=== PATIENT | female | born 1975 | race Caucasian/White ===

== ENCOUNTER 2017-07-18 07:17 | Emergency (ER) | payer SELFPAY ==
[~2017-07-18] VITALS: Ht 157.5 cm; Wt 102.0 kg
[~2017-07-18 07:17] MED LIST: TRAM50TA PO; ZOFR4TAB PO
[2017-07-18 07:22] VITALS: BP 161/90; PULSE 59; RESP 16; TEMP 98.1; O2SAT 100
--- NOTE | 2017-07-18 07:33 | PD ---
HPI Chief Complaint: Abdominal Pain Time Seen by Provider: 07:32 Travel History International Travel<30 days: No Contact w/Intl Traveler<30days: No Traveled to known affect area: No History of Present Illness HPI 41-year-old female came to the emergency room with history of lower abdominal pain since this morning. Patient has been sobbing and crying tearfully and says that "my tummy hurts". She says her menstrual cycle started yesterday and she usually gets pelvic cramps with it but this time is worse. Vital signs are stable otherwise. No history of nausea vomiting. No aggravating or relieving factors identified. The pain waxes and wanes on its own. No radiation of the pain. PFSH Past Medical History Narrative Medical List of her past medical, surgical, social and family history is reviewed from the nursing note Diminished Hearing: No Headaches: Yes Myocardial Infarction: Yes Tubal Ligation: Yes Past Surgical History Appendectomy: Yes Section: Yes (x1) Cholecystectomy: Yes Gynecologic Surgery: Yes (TUBAL LIGATION , X 1 ) Social History Alcohol Use: No Tobacco Use: No Substance Use: No Allergies-Medications (Allergen,Severity, Reaction): Coded Allergies: No Known Allergies (Verified , 07/18/17) Comments No known drug allergies. Reported Meds & Prescriptions Reported Meds & Active Scripts Active Ibuprofen 600 Mg Tab 600 Mg PO Q6H PRN Narrative Medication List of her home medications reviewed from the nursing note. Review of Systems Except as stated in HPI: all other systems reviewed are Neg Genitourinary: Positive: Pelvic Pain Physical Exam Narrative GENERAL: Awake, alert, moderate to significant distress, tearful SKIN: Focused skin assessment warm/dry. HEAD: Atraumatic. Normocephalic. EYES: Pupils equal and round. No scleral icterus. No injection or drainage. ENT: No nasal bleeding or discharge. Mucous membranes pink and moist. NECK: Trachea midline. No JVD. CARDIOVASCULAR: Regular rate and rhythm. No murmur appreciated. RESPIRATORY: No accessory muscle use. Clear to auscultation. Breath sounds equal bilaterally. GASTROINTESTINAL: Abdomen soft, non-tender, nondistended. Hepatic and splenic margins not palpable. MUSCULOSKELETAL: No obvious deformities. No clubbing. No cyanosis. No edema. NEUROLOGICAL: Awake and alert. No obvious cranial nerve deficits. Motor grossly within normal limits. Normal speech. PSYCHIATRIC: Pain out of proportion, patient is extremely tearful; insight and judgment normal. Data Data Last Documented VS Vital Signs Date Time Temp Pulse Resp B/P (MAP) Pulse Ox O2 Delivery O2 Flow Rate FiO2 07/18/17 10:33 07/18/17 09:30 53 16 99 Room Air 07/18/17 07:43 98.1 Orders Orders Urinalysis - C+S If Indicated (07/18/17 07:20) Ed Urine Pregnancytest Poc (07/18/17 07:20) Complete Blood Count With Diff (07/18/17 07:42) Comprehensive Metabolic Panel (07/18/17 07:42) Lipase (07/18/17 07:42) Ketorolac Inj (Toradol Inj) (07/18/17 08:00) Ondansetron Inj (Zofran Inj) (07/18/17 08:00) Metoclopramide Inj (Reglan Inj) (07/18/17 08:00) Sodium Chlor 0.9% 1000 Ml Inj (Ns 1000 M (07/18/17 08:00) Ct Abd/Pel W/O Iv Contrast (07/18/17 ) Morphine Inj (Morphine Inj) (07/18/17 08:45) Us Pelvis Comp W Doppler (07/18/17 ) Ed Discharge Order (07/18/17 10:25) Labs Laboratory Tests Test 07/18/17 07:25 07/18/17 07:40 Urine Collection Type VOIDED Urine Color YELLOW Urine Turbidity CLEAR Urine pH 5.5 Urine Specific [place] GREATER/EQUAL 1.030 Urine Protein NEG mg/dL Urine Glucose (UA) NEG mg/dL Urine Ketones NEG mg/dL Urine Occult Blood MOD Urine Nitrite NEG Urine Bilirubin NEG Urine Urobilinogen 0.2 MG/DL Urine Leukocyte Esterase NEG Urine RBC 0-3 /hpf Urine WBC 3-5 /hpf Urine Squamous Epithelial Cells 0-3 /hpf Microscopic Urinalysis Comment CULT NOT INDICATED White Blood Count 13.9 TH/MM3 Red Blood Count 4.78 MIL/MM3 Hemoglobin 15.4 GM/DL Hematocrit 43.4 % Mean Corpuscular Volume 90.9 FL Mean Corpuscular Hemoglobin 32.2 PG Mean Corpuscular Hemoglobin Concent 35.4 % Red Cell Distribution Width 13.5 % Platelet Count 310 TH/MM3 Mean Platelet Volume 8.5 FL Neutrophils (%) (Auto) 75.0 % Lymphocytes (%) (Auto) 14.6 % Monocytes (%) (Auto) 6.3 % Eosinophils (%) (Auto) 1.4 % Basophils (%) (Auto) 2.7 % Neutrophils # (Auto) 10.4 TH/MM3 Lymphocytes # (Auto) 2.0 TH/MM3 Monocytes # (Auto) 0.9 TH/MM3 Eosinophils # (Auto) 0.2 TH/MM3 Basophils # (Auto) 0.4 TH/MM3 CBC Comment DIFF FINAL Differential Comment Blood Urea Nitrogen 15 MG/DL Creatinine 0.82 MG/DL Random Glucose 119 MG/DL Total Protein 8.9 GM/DL Albumin 3.9 GM/DL Calcium Level 9.2 MG/DL Alkaline Phosphatase 89 U/L Aspartate Amino Transf (AST/SGOT) 25 U/L Alanine Aminotransferase (ALT/SGPT) 30 U/L Total Bilirubin 0.4 MG/DL Sodium Level 139 MEQ/L Potassium Level 4.3 MEQ/L Chloride Level 111 MEQ/L Carbon Dioxide Level 22.9 MEQ/L Anion Gap 5 MEQ/L Estimat Glomerular Filtration Rate 77 ML/MIN Lipase 73 U/L MDM Medical Decision Making Medical Screen Exam Complete: Yes Emergency Medical Condition: Yes Medical Record Reviewed: Yes Differential Diagnosis Dysmenorrhea. UTI, renal colic Narrative Course 8:57 AM blood test results are back. Patient is slight leukocytosis and UA is positive for blood which could be from the menstrual cycle. Patient was given Toradol for pain but continues to be sobbing with pain. I have ordered a CT scan at this point. For the pain medication with morphine has been ordered. 10:[address] scan was within normal limit. An ultrasound to rule out ovarian torsion was done and as per the optical lab technician patient has good flow to both ovaries. There was an incidental finding of a ovarian cyst. Based on this I am comfortable discharging her home. She needs to find a [employer] and follow- up with [employer] since she gets this pain almost with every monthly menstrual cycles. Procedures EKG Prior to Arrival: No Diagnosis Primary Impression: Pelvic pain Additional Impression: Dysmenorrhea Referrals: Destinee Sims MD 2 days [facility] Additional Instructions: Please follow-up with your [employer] INTERPRETER. If you do not have a [employer] INTERPRETER try to get an appointment with 1. The [employer] INTERPRETER who is radio time salesperson for us her name and phone number is given to you on the discharge instruction. You can call our office to get an appointment. Take the medication as needed for pain. He can also follow-up with the walk-in clinic whose address has been provided to you on this discharge instruction. Med/Other Pt SpecificInfo: Prescription(s) given Scripts Ibuprofen (Ibuprofen) 600 Mg Tab 600 MG PO Q6H Y for Pain/Inflammation, #40 TAB 0 Refills Prov: Karen Black MD 07/18/17 Disposition: DISCHARGE HOME Condition: Stable Karen Black MD July 18, 2017 07:33
[2017-07-18 07:43] VITALS: BP 161/90; PULSE 59; RESP 16; TEMP 98.1; O2SAT 100
[2017-07-18 07:54] LABS: BILIRUBIN, URINE NEG (NEG); BLOOD, URINE MOD (NEG); GLUCOSE,URINE NEG (NEG); KETONE, URINE NEG (NEG); NITRITE,URINE NEG (NEG); PH, URINE 5.5 (5.0-8.5); URINE COLOR YELLOW (YELLW/STRAW); URINE LEUKOCYTE ESTERASE NEG (NEG)
[2017-07-18 07:57] LABS: AUTOMATED NEUTROPHIL # 10.4 TH/MM3 (1.8-7.7); BASOPHIL # 0.4 TH/MM3 (0-0.2); BASOPHIL % 2.7 % (0.0-2.0); EOSINOPHIL # 0.2 TH/MM3 (0-0.4); EOSINOPHIL % 1.4 % (0.0-4.0); HEMATOCRIT 43.4 % (35.0-46.0); HEMOGLOBIN 15.4 GM/DL (11.6-15.3); LYMPH % 14.6 % (9.0-44.0); MEAN CELL VOLUME 90.9 FL (80.0-100.0); MEAN CORPUSCULAR HEMOGLOBIN 32.2 PG (27.0-34.0); MEAN CORPUSCULAR HGB CONC 35.4 % (32.0-36.0); MEAN PLATELET VOLUME 8.5 FL (7.0-11.0); MONO % 6.3 % (0.0-8.0); MONOCYTE # 0.9 TH/MM3 (0-0.9); PLATELET COUNT 310 TH/MM3 (150-450); RED BLOOD COUNT 4.78 MIL/MM3 (4.00-5.30); RED CELL DISTRIBUTION WIDTH 13.5 % (11.6-17.2); WHITE BLOOD COUNT 13.9 TH/MM3 (4.0-11.0)
[2017-07-18] MEDS ORDERED: METOCLOPRAMIDE HCL 10 MG/2 ML VIAL IV PUSH ONE (08:00)
[2017-07-18] MEDS ORDERED: KETOROLAC TROMETHAMINE 30 MG/ML (IVP) VIAL IV PUSH ONE (08:00)
[2017-07-18] MEDS ORDERED: ONDANSETRON HCL 4 MG/2 ML VIAL IV PUSH ONE (08:00)
[2017-07-18] MEDS ORDERED: SODIUM CHLOR 0.9% 1000 ML INJ 1,000 ML IV ONE (08:00)
[2017-07-18 08:03] LABS: RBC, URINE 0-3 /hpf (0-3); SQUAMOUS EPITHELIAL CELL URINE 0-3 /hpf (0-5)
[2017-07-18 08:05] LABS: CHLORIDE 111 MEQ/L (98-107); SODIUM (NA) 139 MEQ/L (136-145)
[2017-07-18 08:08] LABS: CALCIUM 9.2 MG/DL (8.5-10.1)
[2017-07-18 08:09] LABS: ALBUMIN 3.9 GM/DL (3.4-5.0); BICARBONATE 22.9 MEQ/L (21.0-32.0); BLOOD UREA NITROGEN 15 MG/DL (7-18); GLUCOSE,RANDOM 119 MG/DL (74-106)
[2017-07-18 08:11] LABS: ALT (GPT) 30 U/L (10-53); AST (GOT) 25 U/L (15-37)
[2017-07-18 08:12] LABS: CREATININE 0.82 MG/DL (0.50-1.00); GLOMERULAR FILTRATION RATE 77 ML/MIN (>89)
[2017-07-18 08:13] LABS: TOTAL BILIRUBIN ADULT 0.4 MG/DL (0.2-1.0); TOTAL PROTEIN 8.9 GM/DL (6.4-8.2)
[2017-07-18 08:14] LABS: ALKALINE PHOSPHATASE 89 U/L (45-117)
[2017-07-18] MEDS ORDERED: MORPHINE SULFATE 4 MG/ML INJ IV PUSH ONE (08:45)
--- NOTE | 2017-07-18 09:16 | RADRPT ---
EXAM DATE: 07/18/2017 9:10 AM EDT AGE/SEX: 41 years / Female INDICATIONS: Diffuse abdominal pain with nausea CLINICAL DATA: This is the patient's initial encounter. Patient reports that signs and symptoms have been present for 1 day and indicates a pain score of 10/10. MEDICAL/SURGICAL HISTORY: Cardiovascular disease. Appendectomy. Tubal ligation. sect ion. RADIATION DOSE: 21.53 CTDI (mGy) COMPARISON: No prior [facility] exams available for comparison. TECHNIQUE: Multiple contiguous axial images were obtained through the abdomen. Images were obtained using multiple row detector helical technique. Using dose reduction techniques, radiation dose was ke pt as low as reasonably achievable to obtain optimal diagnostic quality images. Lack of IV contrast l imits the diagnosis for certain organ pathology. FINDINGS: Lower Lungs: The visualized lower lungs are clear. Liver: The liver has a homogeneous density without space-occupying lesion. There is no dilation of th e biliary tree. Gallbladder surgically removed. Spleen: Homogeneous density without enlargement. Pancreas: Unremarkable without mass or calcification. Kidneys: Normal in size and shape. No evidence of mass or hydronephrosis. No definite calcified ston es. The ureters are nondilated. Adrenal Glands: Unremarkable. Aorta: The aorta and proximal iliac vessels are grossly unremarkable without aneurysmal dilation. Bowel/Mesentery: The bowel loops are grossly unremarkable. The cecum and sigmoid colon have a normal configuration. No inflammatory changes. No free fluid or loculated fluid. Abdominal Wall: Intact. Retroperitoneum: No evidence of adenopathy in the retrocrural, para-aortic, or deep pelvic regions. Bladder: Contours are smooth. Reproductive Organs: No abnormal masses or calcifications seen. Inguinal: The inguinal region is unremarkable without evidence of adenopathy. Bony Structures: Unremarkable. CONCLUSION: 1. Status post cholecystectomy. 2. No acute pathology. Electronically signed by: Paul Gonzalez MD 07/18/2017 9:15 AM EDT
[2017-07-18 09:30] VITALS: BP 161/75; PULSE 53; RESP 16; O2SAT 99
[2017-07-18] MEDS ORDERED: IBUP-232 PO (10:28)
--- NOTE | 2017-07-18 11:23 | RADRPT ---
EXAM DATE: 07/18/2017 11:07 AM EDT AGE/SEX: 41 years / Female INDICATIONS: Pelvic pain. CLINICAL DATA: This is the patient's initial encounter. Patient reports that signs and symptoms have been present for 1 day and indicates a pain score of 4/10. MEDICAL/SURGICAL HISTORY: . Myocardial infarction. Miscarriage x 2. Headaches. Katrin cystectomy. Appendectomy. section. Tubal ligation. COMPARISON: No prior [facility] exams available for comparison. MEASUREMENTS: Uterus:__10.0 x 6.4 x 4.4 cm Endometrial Stripe:__5 mm Right Ovary:__ Flow yes Left Ovary:__ Flow yes FINDINGS: Uterus: The myometrium has homogeneous echotexture without mass. The endometrial cavity is empty. Right Ovary: 3.1 x 2.3 x 1.6 cm. There is a 9 mm cyst associated with the right ovary. Left Ovary: 3.1 x 1.8 x 1.4 cm. Other: No free fluid. CONCLUSION: 1. 9 mm cyst associated with the right ovary. 2. Otherwise, unremarkable pelvic ultrasound. Electronically signed by: Paul Gonzalez MD 07/18/2017 11:21 AM EDT
== END 2017-07-18 10:43 | disposition home or self-care (01) ==
LOC: PHED 07:17
DX: R10.2 Pelvic and perineal pain (principal); N94.6 Dysmenorrhea, unspecified; R51 Headache; I25.2 Old myocardial infarction
CPT/HCPCS: 74176; 76856; 80053; 81001; 83690; 84703; 85025; 93975; 96361; 96374; 96375; 99285; J1885; J2270; J2405; J2765; J7030